=== PATIENT | female | born 1940 | race Caucasian/White ===

== ENCOUNTER 2019-02-23 10:10 | Inpatient (IN) ==
--- NOTE | 2019-02-06 20:52 | PAT Medication Instructions ---
Medication Instructions Date of Service February 06, 2019 Home Medications Antidiarrheal 1 dose PO UD PRN alprazolam [Xanax] 0.25 mg PO UD PRN ascorbic acid (vitamin C) [Vitamin C] 500 mg PO DAILY calcium carbonate-vitamin D3 [Calcium 600 + D(3)] 1 cap PO DAILY cholecalciferol (vitamin D3) [Vitamin D3] 15,000 unit PO DAILY cyanocobalamin (vitamin B-12) [Vitamin B-12] 5,000 mcg PO DAILY ibuprofen 200 mg PO UD PRN lactobacillus combination no.4 [Probiotic] 3,000 mmu cells PO DAILY multivitamin 1 cap PO DAILY omeprazole 20 mg PO QAM sertraline 200 mg PO QAM trazodone 50 mg PO HS ASK your surgeon for instructions ibuprofen 200 mg PO UD PRN DO NOT take the morning of surgery Antidiarrheal 1 dose PO UD PRN ascorbic acid (vitamin C) [Vitamin C] 500 mg PO DAILY calcium carbonate-vitamin D3 [Calcium 600 + D(3)] 1 cap PO DAILY cholecalciferol (vitamin D3) [Vitamin D3] 15,000 unit PO DAILY cyanocobalamin (vitamin B-12) [Vitamin B-12] 5,000 mcg PO DAILY lactobacillus combination no.4 [Probiotic] 3,000 mmu cells PO DAILY multivitamin 1 cap PO DAILY Take morning of surgery With a small sip of water, OTHERWISE NOTHING TO EAT OR DRINK AFTER MIDNIGHT: alprazolam [Xanax] 0.25 mg PO UD PRN (if needed) omeprazole 20 mg PO QAM sertraline 200 mg PO QAM Take evening before surgery alprazolam [Xanax] 0.25 mg PO UD PRN (if needed) trazodone 50 mg PO HS Other Notes If you have any questions please call us at [phone] or [phone] or [phone] or [phone]
--- NOTE | 2019-02-07 10:04 | History & Physical Report ---
Date of Service February 07, 2019 date of surgery: 02-23-19 Assessment & Plan (1) Tricompartment osteoarthritis of right knee: Risks and benefits of procedure discussed in detail today, patient would like to proceed with a Right total knee replacement at [facility] as scheduled. will obtain medical clearance from Dr Qureshi prior to surgery as well as obtain PATs at [facility]. Will place on ASA 81mg po bid x 1 month post op, f/u 2 weeks post op for routine post-operative care and x-ray, sooner if having any problems. will make arrangements for HHPT at the time of discharge. At this point in time, has failed conservative measures and would like to proceed with surgical intervention. History of Present Illness Chief Complaint: right knee pain Primary Care Provider: NO PCP Ms Young is a 78 year old female who is here for a follow up of right knee pain, presents for pre-op evaluation prior to a right total knee replacement at [facility] on 02-23-19. she complains of pain and decreased range of motion in her right knee. She states that the symptoms have been chronic and no known injury. Prior NSAIDs include ibuprofen and Aleve. She has been treated with a corticosteroid injection in the past as well as previous visco supplementation. 05-26-16 Dr. Chatterjee performed a Right knee arthroscopy, and previously in 2002 Dr. Guzman performed Left TKA. at this point, her pain is affecting her daily activities and would like to proceed with a right total knee replacement. Allergies Allergy/AdvReac Type Severity Reaction Status Date / Time acetaminophen [From Vicodin] Allergy Severe SEVERE Verified 02/01/19 12:10 NAUSEA , LOST 23 POUNDS FROM hydrocodone [From Vicodin] Allergy Severe SEVERE Verified 02/01/19 12:10 NAUSEA , LOST 23 POUNDS FROM cefuroxime [From Ceftin] Allergy Unknown REACTION Verified 02/01/19 12:10 WAS LONG AGO, UNSURE epinephrine Allergy Unknown BLOOD Verified 02/01/19 12:20 PRESSURE SHOT UP, FACE TURNED RED, DIZZINESS morphine Allergy Unknown BLOOD Verified 02/01/19 12:20 PRESSURE SHOT UP, FACE TURNED RED AND DIZZINESS Sulfa (Sulfonamide Allergy Unknown "JAW ON Verified 02/01/19 12:10 Antibiotics) ONE SIDE WENT UP, CROOKED" amoxicillin [From Augmentin] AdvReac Unknown SICK TO Verified 02/01/19 12:10 STOMACH ciprofloxacin [From Cipro] AdvReac Unknown SICK TO Verified 02/01/19 12:10 STOMACH clavulanic acid AdvReac Unknown SICK TO Verified 02/01/19 12:10 [From Augmentin] STOMACH Home Medications Home Medications Medication Instructions Recorded Confirmed Type Antidiarrheal 1 dose PO UD PRN 02/01/19 02/01/19 History alprazolam [Xanax] 0.25 mg PO UD PRN 02/01/19 02/01/19 History ascorbic acid (vitamin C) [Vitamin 500 mg PO DAILY 02/01/19 02/01/19 History C] calcium carbonate-vitamin D3 1 cap PO DAILY 02/01/19 02/01/19 History [Calcium 600 + D(3)] cholecalciferol (vitamin D3) 15,000 unit PO DAILY 02/01/19 02/01/19 History [Vitamin D3] cyanocobalamin (vitamin B-12) 5,000 mcg PO DAILY 02/01/19 02/01/19 History [Vitamin B-12] ibuprofen 200 mg PO UD PRN 02/01/19 02/01/19 History lactobacillus combination no.4 3,000 mmu cells PO DAILY 02/01/19 02/01/19 History [Probiotic] multivitamin 1 cap PO DAILY 02/01/19 02/01/19 History omeprazole 20 mg PO QAM 02/01/19 02/01/19 History sertraline 200 mg PO QAM 02/01/19 02/01/19 History trazodone 50 mg PO HS 02/01/19 02/01/19 History Past Med/Surg History Medical History Anxiety Arthritis IN BACK AND NECK, LIMITED ROM IN NECK Bleeds easily PT REPORTS IF SHE GETS A CUT SHE "BLEEDS A LOT" /DENIES USE OF BLOOD THINNER Diverticulitis Frequent diarrhea Gastrointestinal problem NOT SURE NAME OF DX/KVNG GILMAN History of anemia HEMATOLOGY VISITS DIRECTED/SERENA BELTRE History of blood transfusion & IRON TRANSFUSION IBS (irritable bowel syndrome) Nausea and vomiting after administration of anesthetic agent HAD GENERAL ANESTHESIA FOR LEFT KNEE REPLACEMENT - POST OP PAIN AND N/V - PT SPOKE WITH DR ORTEGA AND PLANS ARE FOR SPINAL ANESTHESIA FOR UPCOMING R TKA OCD (obsessive compulsive disorder) Osteoarthritis Surgical History History of appendectomy History of colonoscopy History of tonsillectomy History of total left knee replacement Family History Other Family history of Lizama's esophagus Social History Preferred Language: Azeri Communication Ability: Effective 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 Beliefs That Will Affect Care: Moravian Moravian Beliefs: SY[place]GOGUE Current Living Situation: Alone Other Information That Helps Us Care for You: No Feels Safe at Home: Yes Smoking Status: Never smoker Do You Dip or Chew Tobacco: No ; Hx Alcohol Use: Yes Alcohol type: wine and hard liquor Review of Systems Review of Systems: All systems reviewed & are unremarkable except as noted in HPI & below Constitutional: no fever, no chills and no sweats Respiratory: no cough and no dyspnea Cardiovascular: no chest pain, no dyspnea and no orthopnea Gastrointestinal: no abdominal pain, no nausea and no vomiting Musculoskeletal: as per Subjective / HPI Physical Exam Physical Exam: Ht: 5ft Wt: 67.13kg BP: 132/72 Pulse: 62 Constitutional: WD/WN, vitals as above no acute distress Respiratory: normal respiratory effort, lungs clear to auscultation no respiratory distress, no labored breathing and does not use accessory muscles Cardiovascular: RRR, no murmur, no edema Gastrointestinal (Abdomen): normal bowel sounds, soft, nontender, no hepatosplenomegaly Musculoskeletal: Right Knee Physical Exam: ambulates with a limp, there is no erythema, warmth, ecchymosis or atrophy noted, +1 effusion, greatest tenderness over the medial joint line and anterior knee joint. negative patellar apprehe nsion , mild crepitation with motion, anita's negative, posterior drawer negative. positive mcmurrays medially, negative anterior drawer, knee stable with valgus/varus stress. no extensor lag. pain with active range of motion, AROM 0/3/110, Passive ROM 0/3/115. No pain with active/passive ROM of ankle. Lower Extremity Strength normal. Lower Extremity Neuro-vascular is normal Results & Data Diagnostic Findings right knee xray from 12/17/18 showing complete loss joint space medial compartment with overall varus alignment, there is also narrowing of the lateral compartment and patellofemoral joint. there is osteophyte formation, subchondral sclerosis noted, no loose bodies, no acute bony pathology. overall impression tricompartmental degenerative changes to the right knee.
--- NOTE | 2019-02-07 13:31 | Anesthesiology Consultation ---
Date of Service February 07, 2019 Assessment & Plan (1) Encounter for pre-operative examination: - Patient concerned RE: debora almonte: Advised patient to discuss further AM DOS* Chart Review Chart Review: Pending: Refer to Additional Notes / Consult section (pending preop testing (labs, EKG, CXR)) and Patient seen in Pre Admission Testing Teaching & Discussion Pre-Anesthesia Teaching/Discussion Notes: Instructed NPO after midnight before surgery,except medications with 15 cc of water. Medication instructions provided according to the PAT guidelines. History Surgery Operation Date: 02/23/19 08:20 Proposed Procedures p Right Total Knee Arthroplasty - Jorje Holden DO Height/Weight Height: 5 ft Weight: 71 kg Allergies Allergy/AdvReac Type Severity Reaction Status Date / Time cefuroxime [From Ceftin] Allergy Unknown remote Verified 02/07/19 13:29 reaction (unsure of reaction) epinephrine Allergy Unknown elevated Verified 02/07/19 13:29 BP, facial flushing, dizziness morphine Allergy Unknown elevated Verified 02/07/19 13:29 BP, facial flushing, dizziness acetaminophen [From Vicodin] AdvReac Severe severe Verified 02/07/19 13:29 nausea (23 pound weight loss) hydrocodone [From Vicodin] AdvReac Severe severe Verified 02/07/19 13:29 nausea (23 pound weight loss) amoxicillin [From Augmentin] AdvReac Unknown dyspepsia Verified 02/07/19 13:29 ciprofloxacin [From Cipro] AdvReac Unknown dyspepsia Verified 02/07/19 13:29 clavulanic acid AdvReac Unknown dyspepsia Verified 02/07/19 13:29 [From Augmentin] Sulfa (Sulfonamide AdvReac Unknown jaw issues Verified 02/07/19 13:29 Antibiotics) (crooked, one side elevated) Medications Home Medications Medication Instructions Recorded Confirmed Last Taken Antidiarrheal 1 dose PO UD PRN 02/01/19 02/01/19 Unknown alprazolam [Xanax] 0.25 mg PO UD PRN 02/01/19 02/01/19 Unknown ascorbic acid (vitamin C) [Vitamin 500 mg PO DAILY 02/01/19 02/01/19 Unknown C] calcium carbonate-vitamin D3 1 cap PO DAILY 02/01/19 02/01/19 Unknown [Calcium 600 + D(3)] cholecalciferol (vitamin D3) 15,000 unit PO DAILY 02/01/19 02/01/19 Unknown [Vitamin D3] cyanocobalamin (vitamin B-12) 5,000 mcg PO DAILY 02/01/19 02/01/19 Unknown [Vitamin B-12] ibuprofen 200 mg PO UD PRN 02/01/19 02/01/19 Unknown lactobacillus combination no.4 3,000 mmu cells PO DAILY 02/01/19 02/01/19 Unknown [Probiotic] multivitamin 1 cap PO DAILY 02/01/19 02/01/19 Unknown omeprazole 20 mg PO QAM 02/01/19 02/01/19 02/01/19 sertraline 200 mg PO QAM 02/01/19 02/01/19 02/01/19 trazodone 50 mg PO HS 02/01/19 02/01/19 Unknown Past Medical History Medical History Acid reflux occasional breakthrough symptoms Anxiety Diverticulosis Dysphagia chronic, unchanged to solids (several years) History of anemia hematology monitoring (Dr. Retana; [place]) History of blood transfusion hx blood transfusion (2002) + iron infusion (1+ years ago) IBS (irritable bowel syndrome) + frequent diarrhea OCD (obsessive compulsive disorder) Osteoarthritis Exercise / Class Metabolic Activity III < 4 Walking/Shop/Light housework Past Family History Family History Other Family history of Lizama's esophagus Past Surgical History Surgical History History of appendectomy History of arthroscopy of right knee History of colonoscopy History of tonsillectomy History of total left knee replacement Past Anesthesia History No Family Hx of Anesthesia Complications and Other "Slow to wake" x1 episode with right knee arthroscopy. No known hx reintubation. No similar issues with other surgeries. History of PONV History of PONV and Hx of Motion Sickness (occasional) Social History Smoking Status: Never smoker Do You Dip or Chew Tobacco: No Hx Alcohol Use: Yes Alcohol type: wine and hard liquor alcohol intake frequency: a few times a month Hx Substance Use: No substance use type: does not use Review of Systems Occasional breakthrough reflux. Patient denies chest pain, shortness of breath, cough, wheezing, palpitations. Physical Exam Vital Signs VITALS BP 151/66 (Patient advised to followup with PCP regarding elevated BP) P 53 TEMP 98.4 SP02 95%RA RESP 16 PHYSICAL Full neck and c-spine range of motion. Full TMJ range of motion. TMD 3.5 finger breaths Mallampati Score 1 Dentition: upper full denture Lungs: clear throughout to auscultation Cardiac: regular rate and rhythm, no murmurs noted Spine: normal Carotid arteries: negative bruit Extremities: no edema Testing Laboratory Results 02/07/19 13:57 02/07/19 13:57 PT 10.7 Seconds (9.0-12.0) 02/07/19 13:57 INR 1.0 (0.9-1.1) 02/07/19 13:57 APTT 26.8 Seconds (21.0-31.0) 02/07/19 13:57 Hemoglobin A1c 5.5 % (4.5-5.6) 02/07/19 13:57 Urine Color Yellow 02/07/19 13:57 Urine Appearance Clear (Clear) 02/07/19 13:57 Urine pH 7.0 (4.5-7.5) 02/07/19 13:57 Ur Specific Remer 1.015 (1.000-1.030) 02/07/19 13:57 Urine Protein Negative (Negative) 02/07/19 13:57 Urine Glucose (UA) Negative (Negative) 02/07/19 13:57 Urine Ketones Negative (Negative) 02/07/19 13:57 Urine Nitrite Negative (Negative) 02/07/19 13:57 Ur Leukocyte Esterase 1+ (Negative) H 02/07/19 13:57 Urine WBC (Auto) 10-30 /hpf (0-5) H 02/07/19 13:57 Urine RBC (Auto) 0-4 /hpf (0-4) 02/07/19 13:57 U Hyaline Cast (Auto) 0 /lpf (0-5) 02/07/19 13:57 U Epithel Cells (Auto) 10-20 /lpf (0-5) H 02/07/19 13:57 Urine Bacteria (Auto) Negative (Negative) 02/07/19 13:57 Blood Type B Positive 02/07/19 13:57 Antibody Screen NEGATIVE 02/07/19 13:57
--- NOTE | 2019-02-07 14:33 | XRay Report ---
XR chest Pre-admission PA/Lat CLINICAL HISTORY: PAT preoperative evaluation COMPARISON STUDY: No previous studies for comparison. FINDINGS: Mild cardiomegaly. Hiatal hernia. Type M smooth. Lungs are clear. Minimal atelectasis left base. IMPRESSION: No acute process. Chronic change. Hiatal hernia. The above report was generated using voice recognition software. It may contain grammatical, syntax or spelling errors. Electronically signed by: Joaquín Vazquez M.D. 02/07/2019 2:32 PM
[2019-02-07 15:25] LABS: Eosinophils # (auto) 0.01 K/uL (0-0.5); Eosinophils % (auto) 0.3 %; Hematocrit (blood only) 33.6 % (37-47); Hemoglobin 11.2 g/dL (12.0-16.0); Lymphocytes # (auto) 1.43 K/uL (1.2-3.4); Lymphocytes % (auto) 37.2 %; Mean Corpuscular Hemoglobin 31.5 pg (25-34); Mean Corpuscular Hgb Conc 33.3 g/dL (32-36); Mean Corpuscular Volume 94.4 fL (80-100); Mean Platelet Volume 10.5 fL (7.4-10.4); Monocytes # (auto) 0.41 K/uL (0.11-0.59); Monocytes % (auto) 10.7 %; Neutrophils # (auto) 1.99 K/uL (1.4-6.5); Neutrophils % (auto) 51.8 %; Platelet Count 130 K/uL (130-400); RDW Standard Deviation 44.4 fL (36.4-46.3); Red Blood Count 3.56 M/uL (4.2-5.4); White Blood Count 3.84 K/uL (4.8-10.8)
[2019-02-07 15:28] LABS: Albumin Level 3.6 gm/dl (3.4-5.0); BUN Creatinine Ratio 21.3 (10-20); Calcium 8.5 mg/dl (8.5-10.1); Creatinine Clr Calc Pharmacy 49.3 ml/min; Est GFR (African American) 77.7; Estimated Average Glucose 111 mg/dl; Hemoglobin A1C 5.5 % (4.5-5.6); Potassium 4.5 mmol/L (3.5-5.1)
[2019-02-07 15:29] LABS: Partial Thromboplastin Time 26.8 Seconds (21.0-31.0); Prothrombin Time 10.7 Seconds (9.0-12.0)
[2019-02-07 15:31] LABS: Appearance Urine Clear (Clear); Bacteria Urine Automated Negative (Negative); Bilirubin Urine Negative (Negative); Blood Urine Negative (Negative); Cast Urine Automated 0 /lpf (0-5); Color Urine Yellow; Glucose Urine UA Negative (Negative); Ketones Urine Negative (Negative); Leukocyte Esterase Urine 1+ (Negative); Nitrite Urine Negative (Negative); Protein Urine Negative (Negative); RBC Urine Automated 0-4 /hpf (0-4); Specific Gravity Urine 1.015 (1.000-1.030); Urobilinogen Urine Negative (Negative)
[2019-02-07 16:58] LABS: Smudge Cells Present
[~2019-02-23 10:10] MED LIST: ACETAMINOPHEN 500 MG TAB PO SCH; BUPIVACAINE 0.5 % 5 MG/1 ML PF 10ML VIAL ONE; CLINDAMYCIN 600 MG/54 ML BAG IV SCH; CeleBREX 200 MG CAP PO SCH; EPINEPHrine INJ 1 MG/ML AMP ONE; FAMOTIDINE 20 MG TAB PO SCH; GABAPENTIN 300 MG CAP PO SCH; LR 500ML BOLUS, THEN 15ML/HR IV SCH; ROPIVACAINE 0.5% 5 MG/ML 30 ML VIAL ONE; TRANEXAMIC ACID 1,000 MG **IV Intra-op IV SCH; TRANEXAMIC ACID 1,000 MG **IV Pre-op IV SCH; dexAMETHasone 4 MG TAB PO SCH
--- NOTE | 2019-02-23 11:09 | History & Physical Bridge Note ---
Date of Service February 23, 2019 History & Physical Bridge Note I have examined the patient, reviewed the History & Physical and in the interval since the performance of the History & Physical I have noted the following changes of clinical significance: no changes noted
[2019-02-23] MEDS ORDERED: PROPOFOL IV EMULSION 10 MG/ML 20 ML VIAL IV ONE (11:11)
[2019-02-23] MEDS ORDERED: LIDOCAINE HCL 2% 2 ML VIAL/AMP(20MG/ML) INFIL ONE (11:11)
[2019-02-23] MEDS ORDERED: MIDAZOLAM HCL 1 MG/ML 2ML VIAL ONE (11:11)
[2019-02-23] MEDS ORDERED: BACITRACIN INJ 50,000 UNIT VIAL ONE (11:43)
[2019-02-23] MEDS ORDERED: CLINDAMYCIN 600 MG/54 ML D5W IV ONE (11:57)
[2019-02-23] MEDS ORDERED: ROPIVACAINE 0.5% HCL/PF 150 MG, BUPIVACAINE 0.5% MPF 30 ML, Ketorolac (*for OR use only... INFIL SCH (12:30)
[2019-02-23] MEDS ORDERED: ePHEDrine sulfate 50 MG/ML AMP IV PRN (12:43)
[2019-02-23] MEDS ORDERED: ATROPINE SULFATE 0.1 MG/ML 10ML SYR IV PRN (12:43)
--- NOTE | 2019-02-23 13:42 | Operative Report ---
Post Operative Report Pre & Post Diagnosis Operation Date: 02/23/19 12:40 Pre-Op Diagnosis: Tricompartment osteoarthritis of right knee Post-Op Diagnosis: Tricompartment osteoarthritis of right knee Procedure Operation Date: 02/23/19 12:40 Actual Procedures p Right Total Knee Arthroplasty, cemented, [employer](Right) utilizing journey to non-block total knee arthroplasty size 4 femur to tibia 9 polyethylene 29 oval patella- Jorje Holden DO Surgeon Jorje Holden DO [employer] Joaquín ROGERS Estimated Blood Loss 5 Findings Consistent with Post-Op Diagnosis Severe end-stage tricompartmental degenerative joint disease right knee no response to conservative management subchondral cystic changes noted marginal osteophytes eburnated [id number] medial compartment lateral compartment patellofemoral compartment moderate to large effusion Specimens Bone cartilage Drains Medium bore Hemovac Complications none Disposition Accompanied Patient To Recovery: No Disposition: Recovery Room Indications Patient presents with ongoing planes of pain trouble to the right knee no response to conservative management and physical therapy anti-inflammatories relative rest activity modification corticosteroid injection Visco supplementation patient is failed attempted conservative manage the above intraoperative findings noted times surgery. Description of Procedure Patient was properly identifiedAfter proper prepping and draping of the Right lower extremity anterior midline incision was made over the region of the e xtensor extensor mechanism after meticulous hemostasis was obtained and maintained in subcutaneous tissues a medial parapatellar incision was made The patella was subluxed lateralward the medial lateral gutter were cleaned from any hypertrophic synovitis and scar tissue of the distal femoral block was placed and the distal femoral osteotomy cut was made subsequently the chamfers anterior and posterior osteotomy cuts were made utilizing the 4-in-1 block the tibia was subsequently subluxed anteriorward medial and ateral meniscal remnants were excised in their entirety remnants of the anterior and posterior cruciate ligaments were excised in their entirety excellent exposure of the proximal tibia was obtained the tibial osteotomy guide was placed on the proximal tibial osteotomy cut was made once again the knee was irrigated with copious amounts of sterile saline solution the patella was subsequently everted lateralward thickened scar tissue around the patella was removed the patella was subsequently cut utilizing a freehand technique and was drilled prepared for final preparation and placement of patella socially flexion-extension gaps were checked and the equal and symmetric trials were placed to the appropriate femoral and tibial trials with poly-spacer being placed for equal flexion and extension gaps and full range of motion including extension to 0 and flexion to 140 the trial components after having been taken to recovery range of motion was subsequently removed meticulous hemostasis was obtained and maintained subsequently a knee block injection of joint cocktail including ropivacaine 0.5% 150 mg. Bupivacaine 0.5% epinephrine 1-200,030 mL's toradol 30 mg dexamethasone 4 mg ketamine 10 mg clonidine 100 micrograms normal saline solution 30 mg was infiltrated into the soft tissues of the posterior knee medial lateral gutters and periosteal synovium special attention was paid to protect neurovascular structures at all times subsequently trial components having been removed the knee was irrigated with sterile saline solution. debris was removed the proximal tibia was subsequently prepared and was made ready for the placement of the tibial component tibial component was also cemented and tamped into position the femoral component was subsequently placed and cemented in the position the patellar component was subsequently cemented in position because hemostasis once again obtained and maintained wound having been thoroughly irrigated with debridement and debridement lavage was performed as well as a medial parapatellar incision closed with #1 Vicryl in interrupted fashion subcutaneous was closed with #2 Vicryl skin was closed with skin clips. PA-C was necessary for prepping and drapping as well as wound closure of deep fascia Sub cutaneous tissue and skin and was necessary for the case. A sterile compressive dressing was placed patient was taken to recovery in stable condition of report dictated by Navin I attest to the content of the Intraoperative Record and any orders documented therein. Any exceptions are noted below. I attest to the content of the Intraoperative Record and any orders documented therein. Any exceptions are noted below.
--- NOTE | 2019-02-23 15:01 | XRay Report ---
RIGHT KNEE 2 VIEWS History: Right total knee arthroplasty. Degenerative arthritis. Postop. FINDINGS: The patient is status post a right total knee arthroplasty. The hardware is intact. No frac ture or dislocation. Surgical drains are in place. IMPRESSION: Right total knee arthroplasty. No evidence for hardware complication. Electronically signed by: Ulysses Deleon M.D. 02/23/2019 2:59 PM
--- NOTE | 2019-02-23 15:29 | Anesthesiology Progress Note ---
Date of Service February 23, 2019 Anesthesia Post Procedure Vital Signs Vital Signs: Temp Pulse Pulse Pulse Resp BP BP 02/23/19 15:21 56 L 13 127/72 02/23/19 15:20 57 L 13 02/23/19 15:16 60 12 128/83 02/23/19 15:15 53 L 23 02/23/19 15:12 36.4 C L 02/23/19 15:11 56 L 13 02/23/19 15:10 76 15 123/72 02/23/19 15:06 64 18 101/67 02/23/19 15:05 54 L 14 02/23/19 15:01 58 L 12 02/23/19 15:00 78 13 122/83 02/23/19 14:56 44 L 13 107/85 02/23/19 14:55 79 16 02/23/19 14:51 68 16 02/23/19 14:50 60 16 130/77 02/23/19 14:46 76 15 02/23/19 14:45 75 15 125/77 02/23/19 14:41 77 17 02/23/19 14:40 78 14 106/70 02/23/19 14:36 75 17 02/23/19 14:35 36.6 C 80 80 19 115/71 115/71 02/23/19 14:31 70 14 02/23/19 14:30 79 15 112/66 02/23/19 14:27 78 16 02/23/19 14:26 36.6 C 81 79 25 H 112/53 L 112/53 L 02/23/19 10:57 36.5 C 48 L 20 BP Pulse Ox 02/23/19 15:21 95 02/23/19 15:20 96 02/23/19 15:16 98 02/23/19 15:15 93 02/23/19 15:12 94 02/23/19 15:11 97 02/23/19 15:10 97 02/23/19 15:06 96 02/23/19 15:05 96 02/23/19 15:01 97 02/23/19 15:00 97 02/23/19 14:56 96 02/23/19 14:55 94 02/23/19 14:51 94 02/23/19 14:50 96 02/23/19 14:46 94 02/23/19 14:45 96 02/23/19 14:41 96 02/23/19 14:40 02/23/19 14:36 97 02/23/19 14:35 100 02/23/19 14:31 99 02/23/19 14:30 99 02/23/19 14:27 98 02/23/19 14:26 99 02/23/19 10:57 137/79 99 Pain Intensity Right Knee: Pain Intensity: 0 Transfer of Care Handoff Completed per policy Notes Mental Status: alert / awake / arousable Patient Amnestic to Procedure: Yes Nausea / Vomiting: adequately controlled Pain: adequately controlled Airway Patency, RR, SpO2: stable & adequate BP & HR: stable & adequate Hydration State: stable & adequate Neuraxial Anesthesia: was administered and sensory block is resolving Anesthetic Complications: no major complications apparent
[2019-02-23] MEDS ORDERED: MAGNESIUM HYDROXIDE SUSP 30 ML UDC PO PRN (15:46)
[2019-02-23] MEDS ORDERED: bisacodyL 10 MG SUPP PR PRN (15:46)
[2019-02-23] MEDS ORDERED: ALPRAZolam 0.25 MG TABLET PO PRN (15:46)
[2019-02-23] MEDS ORDERED: NALOXONE HCL 0.4 MG/1 ML VIAL/CARP IV PRN (15:46)
[2019-02-23] MEDS ORDERED: METOCLOPRAMIDE HCL INJ 5 MG/ML 2 ML VIAL IV PRN (15:46)
[2019-02-23] MEDS ORDERED: SODIUM CHLORIDE 0.9% 1000ML 1,000 ML IV SCH (16:00)
[2019-02-23] MEDS: KETOROLAC TROMETHAMINE 15 MG/ML VIAL IV SCH ×2 (18:06→23:18)
[2019-02-23] MEDS: TRAZODONE HCL 50 MG TAB PO SCH (21:24)
[2019-02-23] MEDS: SENNA 8.6 MG TAB PO SCH (21:24)
[2019-02-23] MEDS: CLINDAMYCIN 600 MG in DEXTROSE 5% 50 ML IV SCH (21:24)
[2019-02-23] MEDS: ASPIRIN 81 MG ECTAB PO SCH (21:24)
[2019-02-23] MEDS: DOCUSATE SODIUM 100 MG CAP PO SCH (21:24)
[2019-02-24] MEDS: TRAMADOL HCL 50 MG TABLET PO PRN ×4 (04:12→19:54)
[2019-02-24] MEDS: CLINDAMYCIN 600 MG in DEXTROSE 5% 50 ML IV SCH (04:58)
[2019-02-24] MEDS: KETOROLAC TROMETHAMINE 15 MG/ML VIAL IV SCH ×2 (04:58→11:33)
[2019-02-24 05:46] LABS: Hematocrit (blood only) 29.5 % (37-47); Hemoglobin 10.1 g/dL (12.0-16.0); Mean Corpuscular Hemoglobin 31.7 pg (25-34); Mean Corpuscular Hgb Conc 34.2 g/dL (32-36); Mean Corpuscular Volume 92.5 fL (80-100); Mean Platelet Volume 10.3 fL (7.4-10.4); Platelet Count 116 K/uL (130-400); RDW Coefficient of Variation 12.7 % (11.5-14.5); RDW Standard Deviation 43.2 fL (36.4-46.3); Red Blood Count 3.19 M/uL (4.2-5.4); White Blood Count 8.88 K/uL (4.8-10.8)
[2019-02-24 06:15] LABS: BUN Creatinine Ratio 26.9 (10-20); Calcium 7.9 mg/dl (8.5-10.1); Creatinine Clr Calc Pharmacy 50.7 ml/min; Est GFR (African American) 81.2; Est GFR (Non-African American) 70.1; Potassium 4.1 mmol/L (3.5-5.1)
[2019-02-24] MEDS: CHOLECALCIFEROL 1,000 UNITS TAB PO SCH (07:56)
[2019-02-24] MEDS: CALCIUM 600MG + VIT D 400 IU TAB PO SCH (07:56)
[2019-02-24] MEDS: SERTRALINE HCL 100 MG TABLET PO SCH (07:58)
[2019-02-24] MEDS: CYANOCOBALAMIN 500 MCG TABLET (VITAMIN B-12) PO SCH (08:00)
[2019-02-24] MEDS: MULTIVITAMIN TAB PO SCH (08:00)
[2019-02-24] MEDS: ASPIRIN 81 MG ECTAB PO SCH ×2 (08:00→21:20)
[2019-02-24] MEDS: LACTOBACILLUS ACIDOPHILUS (FLORANEX) TAB PO SCH (08:00)
[2019-02-24] MEDS: DOCUSATE SODIUM 100 MG CAP PO SCH ×2 (08:00→21:18)
[2019-02-24] MEDS: ASCORBIC ACID 500 MG TAB PO SCH (08:01)
[2019-02-24] MEDS: MEPERIDINE HCL 25 MG/ML CARP IV PRN ×2 (08:02→21:26)
--- NOTE | 2019-02-24 08:27 | Orthopedic Progress Note ---
Date of Service February 24, 2019 Subjective POD 1 s/p Right TKA Patient is currently sitting up in bed awake and alert. She is complaining of pain in the right knee. Nursing staff is in with her now and attending to her needs. She is due for her p.o. pain meds in a few minutes. We discussed pain medications with her and multiple allergies which cause nausea. We discussed that if the tramadol does not work for her that we may need to try oxycodone which she has never had in the past, or possibly Nucynta versus Dilaudid p.o. she states that she would like to see how the other medications are going to work before trying anything else. She denies any shortness of breath, chest pain, lightheadedness. Physical Exam Physical Exam: Dressings are clean, dry, and intact. Neurovascular is intact. Toes are mobile. 50 mL's from the Hemovac this morning. Results & Data Vital Signs (Past 12 Hours) Vital Signs Temp Pulse Resp BP Pulse Ox 02/24/19 07:25 36.6 C 51 L 16 135/81 99 02/24/19 03:12 36.9 C 56 L 16 128/73 99 02/23/19 23:00 36.6 C 60 16 136/76 94 Laboratory Results Laboratory Results WBC 8.88 K/uL (4.8-10.8) 02/24/19 05:02 RBC 3.19 M/uL (4.2-5.4) L 02/24/19 05:02 Hgb 10.1 g/dL (12.0-16.0) L 02/24/19 05:02 Hct 29.5 % (37-47) L 02/24/19 05:02 MCV 92.5 fL (80-100) 02/24/19 05:02 MCH 31.7 pg (25-34) 02/24/19 05:02 MCHC 34.2 g/dL (32-36) 02/24/19 05:02 RDW Std Deviation 43.2 fL (36.4-46.3) 02/24/19 05:02 RDW Coeff of Roberta 12.7 % (11.5-14.5) 02/24/19 05:02 Plt Count 116 K/uL (130-400) L 02/24/19 05:02 MPV 10.3 fL (7.4-10.4) 02/24/19 05:02 Immature Gran % (Auto) 0.0 % 02/07/19 13:57 Neut % (Auto) 51.8 % 02/07/19 13:57 Lymph % (Auto) 37.2 % 02/07/19 13:57 [place] % (Auto) 10.7 % 02/07/19 13:57 Eos % (Auto) 0.3 % 02/07/19 13:57 Baso % (Auto) 0.0 % 02/07/19 13:57 Immature Gran # (Auto) 0.00 K/uL (0.00-0.02) 02/07/19 13:57 Neut # (Auto) 1.99 K/uL (1.4-6.5) 02/07/19 13:57 Lymph # (Auto) 1.43 K/uL (1.2-3.4) 02/07/19 13:57 [place] # (Auto) 0.41 K/uL (0.11-0.59) 02/07/19 13:57 Eos # (Auto) 0.01 K/uL (0-0.5) 02/07/19 13:57 Baso # (Auto) 0.00 K/uL (0-0.2) 02/07/19 13:57 Smudge Cells Present 02/07/19 13:57 Blood Smear Review 02/07/19 13:57 PT 10.7 Seconds (9.0-12.0) 02/07/19 13:57 INR 1.0 (0.9-1.1) 02/07/19 13:57 APTT 26.8 Seconds (21.0-31.0) 02/07/19 13:57 PTT Ratio 1.0 02/07/19 13:57 Sodium 138 mmol/L (136-145) 02/24/19 05:02 Potassium 4.1 mmol/L (3.5-5.1) 02/24/19 05:02 Chloride 105 mmol/L (98-107) 02/24/19 05:02 Carbon Dioxide 26 mmol/L (21-32) 02/24/19 05:02 Anion Gap 7.0 (3-11) 02/24/19 05:02 BUN 22 mg/dl (7-18) H 02/24/19 05:02 Creatinine 0.81 mg/dl (0.6-1.2) 02/24/19 05:02 Est Cr Clr Drug Dosing 50.7 ml/min 02/24/19 05:02 Est GFR ( Amer) 81.2 02/24/19 05:02 Est GFR (Non-Af Amer) 70.1 02/24/19 05:02 BUN/Creatinine Ratio 26.9 (10-20) H 02/24/19 05:02 Glucose 119 mg/dl (70-99) H 02/24/19 05:02 Estimat Average Glucose 111 mg/dl 02/07/19 13:57 Hemoglobin A1c 5.5 % (4.5-5.6) 02/07/19 13:57 Calcium 7.9 mg/dl (8.5-10.1) L 02/24/19 05:02 Albumin 3.6 gm/dl (3.4-5.0) 02/07/19 13:57 Urine Color Yellow 02/07/19 13:57 Urine Appearance Clear (Clear) 02/07/19 13:57 Urine pH 7.0 (4.5-7.5) 02/07/19 13:57 Ur Specific [place] 1.015 (1.000-1.030) 02/07/19 13:57 Urine Protein Negative (Negative) 02/07/19 13:57 Urine Glucose (UA) Negative (Negative) 02/07/19 13:57 Urine Ketones Negative (Negative) 02/07/19 13:57 Urine Blood Negative (Negative) 02/07/19 13:57 Urine Nitrite Negative (Negative) 02/07/19 13:57 Urine Bilirubin Negative (Negative) 02/07/19 13:57 Urine Urobilinogen Negative (Negative) 02/07/19 13:57 Ur Leukocyte Esterase 1+ (Negative) H 02/07/19 13:57 Urine WBC (Auto) 10-30 /hpf (0-5) H 02/07/19 13:57 Urine RBC (Auto) 0-4 /hpf (0-4) 02/07/19 13:57 U Hyaline Cast (Auto) 0 /lpf (0-5) 02/07/19 13:57 U Epithel Cells (Auto) 10-20 /lpf (0-5) H 02/07/19 13:57 Urine Bacteria (Auto) Negative (Negative) 02/07/19 13:57 Blood Type B Positive 02/07/19 13:57 Antibody Screen NEGATIVE 02/07/19 13:57
--- NOTE | 2019-02-24 08:41 | Anesthesiology Progress Note ---
Date of Service February 24, 2019 Anesthesia Post Procedure Vital Signs Vital Signs: Temp Pulse Pulse Pulse Resp BP BP 02/24/19 07:25 36.6 C 51 L 16 135/81 02/24/19 03:12 36.9 C 56 L 16 128/73 02/23/19 23:00 36.6 C 60 16 136/76 02/23/19 18:47 36.6 C 60 16 131/74 02/23/19 17:41 36.8 C 66 16 120/58 L 02/23/19 16:31 36.2 C L 64 18 02/23/19 16:05 36.4 C L 53 L 16 100/65 02/23/19 15:35 36.5 C 56 L 18 115/73 02/23/19 15:21 56 L 13 127/72 02/23/19 15:20 57 L 13 02/23/19 15:16 60 12 128/83 02/23/19 15:15 53 L 23 02/23/19 15:12 36.4 C L 02/23/19 15:11 56 L 13 02/23/19 15:10 76 15 123/72 02/23/19 15:06 64 18 101/67 02/23/19 15:05 54 L 14 02/23/19 15:01 58 L 12 02/23/19 15:00 78 13 122/83 02/23/19 14:56 44 L 13 107/85 02/23/19 14:55 79 16 02/23/19 14:51 68 16 02/23/19 14:50 60 16 130/77 02/23/19 14:46 76 15 02/23/19 14:45 75 15 125/77 02/23/19 14:41 77 17 02/23/19 14:40 78 14 106/70 02/23/19 14:36 75 17 02/23/19 14:35 36.6 C 80 80 19 115/71 115/71 02/23/19 14:31 70 14 02/23/19 14:30 79 15 112/66 02/23/19 14:27 78 16 02/23/19 14:26 36.6 C 81 79 25 H 112/53 L 112/53 L 02/23/19 10:57 36.5 C 48 L 20 BP Pulse Ox 10/03/19 07:25 99 02/24/19 03:12 99 02/23/19 23:00 94 02/23/19 18:47 96 02/23/19 17:41 94 02/23/19 16:31 112/73 100 02/23/19 16:05 100 02/23/19 15:35 100 02/23/19 15:21 95 02/23/19 15:20 96 02/23/19 15:16 98 02/23/19 15:15 93 02/23/19 15:12 94 02/23/19 15:11 97 02/23/19 15:10 97 02/23/19 15:06 96 02/23/19 15:05 96 02/23/19 15:01 97 02/23/19 15:00 97 02/23/19 14:56 96 02/23/19 14:55 94 02/23/19 14:51 94 02/23/19 14:50 96 02/23/19 14:46 94 02/23/19 14:45 96 02/23/19 14:41 96 02/23/19 14:40 02/23/19 14:36 97 02/23/19 14:35 100 02/23/19 14:31 99 02/23/19 14:30 99 02/23/19 14:27 98 02/23/19 14:26 99 02/23/19 10:57 137/79 99 Pain Intensity Right Knee: Pain Intensity: 4 Notes Mental Status: alert / awake / arousable and participated in evaluation Patient Amnestic to Procedure: Yes Nausea / Vomiting: adequately controlled Pain: adequately controlled Airway Patency, RR, SpO2: stable & adequate BP & HR: stable & adequate Hydration State: stable & adequate Neuraxial Anesthesia: was administered and sensory block resolved Anesthetic Complications: no major complications apparent and Pt Satisfied with anesthetic care
[2019-02-24] MEDS: CeleBREX 200 MG CAP PO SCH (21:18)
[2019-02-24] MEDS: TRAZODONE HCL 50 MG TAB PO SCH (21:19)
[2019-02-24] MEDS: SENNA 8.6 MG TAB PO SCH (21:20)
[2019-02-24] MEDS: ONDANSETRON INJ 2 MG/ML 2 ML VIAL IV PRN (23:31)
[2019-02-25] MEDS: MEPERIDINE HCL 25 MG/ML CARP IV PRN (03:11)
[2019-02-25] MEDS ORDERED: TAPENTADOL HCL 50 MG TAB PO PRN (07:54)
--- NOTE | 2019-02-25 08:29 | Orthopedic Progress Note ---
Date of Service February 25, 2019 Assessment & Plan (1) Tricompartment osteoarthritis of right knee: Postop day 2 status post right TKA. Pain management issues -we will discontinue her tramadol. Tapentadol 5200 mg p.o. every 4 hours as needed started. Toradol 50 mg IV every 6 hours reordered. Plan to check a BMP as well this morning. Continue PT and OT protocols. Weightbearing as tolerated DVT prophylaxis with aspirin, SCDs and NANETTE hose Pain management as noted above. DC planning-patient is planning on home health services. Depending on pain control, we will see how she responds to the tapentadol and more than likely she may have to stay until tomorrow depending on pain control. Subjective Postop day 2 status post right total knee arthroplasty. Patient is lying in bed this morning. She is awake and alert. She states that she still has poor pain control. She feels that the tramadol is not working. She states that the Demerol helps but makes her go to sleep. She has multiple narcotics that she has allergies listed to which mainly because nausea etc. We discussed that we can change her pain medications to something else at this time. However depending on how she reacts to the medications, she may have to stay an extra day to make sure her pain is controlled before she goes home. Patient understands. Physical Exam Physical Exam: Incision is clean, dry, and intact. She has mild to moderate swelling of the knee with no overt erythema. Calves are soft and nontender. Neurovascular intact. Toes are mobile. Results & Data Vital Signs (Past 12 Hours) Vital Signs Temp Pulse Resp BP Pulse Ox 02/25/19 07:15 37.2 C 102 H 18 100/66 92 02/24/19 22:59 36.9 C 72 16 116/73 93
[2019-02-25] MEDS: KETOROLAC TROMETHAMINE 15 MG/ML VIAL IV SCH ×2 (08:41→14:24)
[2019-02-25] MEDS: CeleBREX 200 MG CAP PO SCH (08:42)
[2019-02-25] MEDS: CHOLECALCIFEROL 1,000 UNITS TAB PO SCH (08:52)
[2019-02-25] MEDS: ASCORBIC ACID 500 MG TAB PO SCH (08:52)
[2019-02-25] MEDS: CYANOCOBALAMIN 500 MCG TABLET (VITAMIN B-12) PO SCH (08:52)
[2019-02-25] MEDS: DOCUSATE SODIUM 100 MG CAP PO SCH ×2 (08:53→20:55)
[2019-02-25] MEDS: ASPIRIN 81 MG ECTAB PO SCH ×2 (08:53→20:55)
[2019-02-25] MEDS: CALCIUM 600MG + VIT D 400 IU TAB PO SCH (08:53)
[2019-02-25] MEDS: SERTRALINE HCL 100 MG TABLET PO SCH (08:53)
[2019-02-25] MEDS: MULTIVITAMIN TAB PO SCH (08:53)
[2019-02-25] MEDS: LACTOBACILLUS ACIDOPHILUS (FLORANEX) TAB PO SCH (08:53)
[2019-02-25 09:20] LABS: BUN Creatinine Ratio 47.8 (10-20); Calcium 7.9 mg/dl (8.5-10.1); Est GFR (African American) 83.7; Est GFR (Non-African American) 72.2; Potassium 3.9 mmol/L (3.5-5.1)
[2019-02-25] MEDS: PANTOprazole 40 MG TAB PO SCH (10:21)
[2019-02-25] MEDS: TAPENTADOL HCL 50 MG TAB PO PRN ×2 (16:00→20:55)
[2019-02-25] MEDS: ONDANSETRON INJ 2 MG/ML 2 ML VIAL IV PRN (16:04)
[2019-02-25] MEDS ORDERED: KETOROLAC TROMETHAMINE 15 MG/ML VIAL IV PRN (20:00)
[2019-02-25] MEDS: SENNA 8.6 MG TAB PO SCH (20:55)
[2019-02-25] MEDS: TRAZODONE HCL 50 MG TAB PO SCH (22:26)
[2019-02-26 06:15] LABS: BUN Creatinine Ratio 26.8 (10-20); Calcium 8.2 mg/dl (8.5-10.1); Creatinine Clr Calc Pharmacy 53.4 ml/min; Est GFR (African American) 86.3; Est GFR (Non-African American) 74.5; Potassium 4.2 mmol/L (3.5-5.1)
[2019-02-26] MEDS: CHOLECALCIFEROL 1,000 UNITS TAB PO SCH (07:48)
[2019-02-26] MEDS: CYANOCOBALAMIN 500 MCG TABLET (VITAMIN B-12) PO SCH (07:49)
[2019-02-26] MEDS: TAPENTADOL HCL 50 MG TAB PO PRN ×2 (07:53→12:48)
[2019-02-26] MEDS: DOCUSATE SODIUM 100 MG CAP PO SCH (07:54)
[2019-02-26] MEDS: MULTIVITAMIN TAB PO SCH (07:54)
[2019-02-26] MEDS: LACTOBACILLUS ACIDOPHILUS (FLORANEX) TAB PO SCH (07:54)
[2019-02-26] MEDS: SERTRALINE HCL 100 MG TABLET PO SCH (07:54)
[2019-02-26] MEDS: ASCORBIC ACID 500 MG TAB PO SCH (07:54)
[2019-02-26] MEDS: PANTOprazole 40 MG TAB PO SCH (07:54)
[2019-02-26] MEDS: CALCIUM 600MG + VIT D 400 IU TAB PO SCH (07:55)
--- NOTE | 2019-02-26 07:55 | Orthopedic Progress Note ---
Date of Service February 26, 2019 Assessment & Plan (1) Status post right knee replacement: 78 yo female stable POD #3 s/p right TKA, improved pain control 1. Med management 2. DVT prophylaxis- ASA, SCDs 3. PT/OT 4. D/C planning- home w/ HH Subjective Pt resting in the chair, pain better controlled today, denies complaints Physical Exam Physical Exam: Incision C/D/I, toes mobile, NVI, calves soft Results & Data Vital Signs (Past 12 Hours) Vital Signs Temp Pulse Pulse Resp BP Pulse Ox 02/26/19 05:44 37.6 C H 87 16 125/70 92 02/25/19 23:30 37.4 C 98 H 18 133/75 93 Laboratory Results 02/26/19 02/25/19 Range/Units 05:15 08:41 Sodium 137 132 L (136-145) mmol/L Potassium 4.2 3.9 (3.5-5.1) mmol/L Chloride 102 100 (98-107) mmol/L Carbon Dioxide 29 27 (21-32) mmol/L Anion Gap 6.0 5.0 (3-11) BUN 21 H 38 H D (7-18) mg/dl Creatinine 0.77 0.79 (0.6-1.2) mg/dl Est Cr Clr Drug Dosing 53.4 52.0 ml/min Est GFR ( Amer) 86.3 83.7 Est GFR (Non-Af Amer) 74.5 72.2 BUN/Creatinine Ratio 26.8 H 47.8 H (10-20) Glucose 107 H 109 H (70-99) mg/dl Calcium 8.2 L 7.9 L (8.5-10.1) mg/dl
[2019-02-26] MEDS: ASPIRIN 81 MG ECTAB PO SCH (08:14)
[2019-02-26] MEDS ORDERED: ONDANSETRON 4 MG TAB PO PRN (12:56)
--- NOTE | 2019-02-26 19:47 | Discharge Summary ---
Date of Service Date of discharge: February 26, 2019 Date of Admission: 02/23/19 Admission HPI Per Admitting Provider Ms Young is a 78 year old female who is here for a follow up of right knee pain, presents for pre-op evaluation prior to a right total knee replacement at [facility] on 02-23-19. she complains of pain and decreased range of motion in her right knee. She states that the symptoms have been chronic and no known injury. Prior NSAIDs include ibuprofen and Aleve. She has been treated with a corticosteroid injection in the past as well as previous visco supplementation. 05-26-16 Dr. Chatterjee performed a Right knee arthroscopy, and previously in 2002 Dr. Guzman performed Left TKA. at this point, her pain is affecting her daily activities and would like to proceed with a right total knee replacement. Principal Diagnosis right knee osteoarthritis Discharge Exam Constitutional WD/WN, vitals as above no acute distress Musculoskeletal right knee: NVDI, calf SNT, negative maria elena sign. DP palpable, able to wiggle toes/ankle movement without difficulty. prineo dressing clean dry and intact. expected post-operative bruising noted. Discharge Data Allergies Allergy/AdvReac Type Severity Reaction Status Date / Time cefuroxime [From Ceftin] Allergy Unknown remote Verified 02/23/19 10:40 reaction (unsure of reaction) epinephrine Allergy Unknown elevated Verified 02/23/19 10:40 BP, facial flushing, dizziness morphine Allergy Unknown elevated Verified 02/23/19 10:40 BP, facial flushing, dizziness acetaminophen [From Vicodin] AdvReac Severe severe Verified 02/23/19 10:40 nausea (23 pound weight loss) hydrocodone [From Vicodin] AdvReac Severe severe Verified 02/23/19 10:40 nausea (23 pound weight loss) amoxicillin [From Augmentin] AdvReac Unknown dyspepsia Verified 02/23/19 10:40 ciprofloxacin [From Cipro] AdvReac Unknown dyspepsia Verified 02/23/19 10:40 clavulanic acid AdvReac Unknown dyspepsia Verified 02/23/19 10:40 [From Augmentin] Sulfa (Sulfonamide AdvReac Unknown jaw issues Verified 02/23/19 10:40 Antibiotics) (crooked, one side elevated) Consultations 02/23/19 15:46 Consult Case Management - Discharge Planning Routine Procedures Performed Operation Date: 02/23/19 12:40 Actual Procedures p Right Total Knee Arthroplasty, cemented, [employer](Right) - Jorje Holden, Ordered Studies 02/23/19 12:14 US - OR guided needle placemen Stat Hospital Course (1) Status post right knee replacement: 78 yo female stable POD #3 s/p right TKA, improved pain control 1. Med management 2. DVT prophylaxis- ASA, SCDs 3. PT/OT 4. D/C planning- home w/ HH Total Time Total Time Spent Total Time Spent (In Minutes): 20 Total Time Includes: Examination of the Patient, Discharge Planning and Medication Reconciliation Discharge Plan Discharge Items Patient Disposition: Home - Home Health Services Reason For Visit: RIGHT KNEE OSTEOARTHRITIS Discharge Diagnosis: Right Knee Osteoarthritis Activity: Per Instructions section Weightbearing: Right weightbearing Weightbearing Comment: as tolerated with walker Non-emergency contact: Surgeon Call non-emergency contact if: your pain is not controlled, your temperature is above 101.5, your wound has increased redness and your wound has increased drainage Follow-up/Referrals: PCP,BARBARA [Primary Care Provider] - Diet: Regular Addtl Attending Provider Instructions: ACTIVITY RECOMMENDATIONS: SELF CARE INSTRUCTIONS AFTER TOTAL KNEE REPLACEMENT A. You may need to continue a physical therapy program after discharge from the hospital. There are several options available to you. Your doctor will assist you in selecting the best one for you. 1. An out-patient facility 2 to 3 times a week for therapy or home therapy. 2. Continue working on all exercises taught to you in the hospital. Your goals should be to increase bending of your knee to 90 degrees and beyond and to fully straighten your knee. B. You may progress at your own pace from walking with a walker or crutches to a cane; then to no assistive devices. C. Make walking a part of your daily routine. Be up as much as comfortable with rest periods throughout the day. Rest with leg elevation is very important. Use the ice wrap frequently for the first 3-4 weeks. D. There are no restrictions on activities. 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 E. Wear the long elastic stockings (NANETTE hose) 20 hours a day for 2 weeks after surgery. They can be removed several times a day for laundering and for a bath. F. You may shower, no tub baths until cleared by your doctor. SPECIAL CARE INSTRUCTIONS: VERY IMPORTANT TO READ AND REVIEW A. There are a few signs you need to watch for after you are home. Call [facility] if you notice any of the followin. Increased severe knee pain. Some pain is expected especially when you exercise. 2. Increased swelling in your leg or knee; pain or swelling of the calf muscle in either lower leg. 3. Any fluid drainage from the incision. 4. Shortness of breath or chest pain. B. Please call [facility] at if you have any concerns or questions about your operation or recovery. The doctor or his nurse will return your call promptly. C. You must take antibiotics before dental work, bladder, bowel or other surgery. Your doctor will provide you with a permanent care to carry describing this precaution. IMPORTANT: * REMEMBER TO TAKE ASPIRIN, 81 MG, TWICE DAILY FOR 4 WEEKS UNLESS OTHERWISE DIRECTED. THIS IS YOUR BLOOD THINNER. * HIGH RISK PATIENTS MAY BE PRESCRIBED A STRONGER BLOOD THINNER. THIS WILL BE PROVIDED AT DISCHARGE. * CALL IF INCREASED PAIN, REDNESS, DRAINAGE OR FEVER GREATER THAT 101. * WEAR NANETTE HOSE 20 HOURS PER DAY FOR 2 WEEKS. * YOU MAY HAVE A LARGE BAND-AID LIKE DRESSING (SILVERON). THIS WILL REMAIN ON YOUR INCISION FOR 7 DAYS, THEN CAN BE REMOVED. IF INCISION IS LEAKING THROUGH DRESSING, CALL THE OFFICE . FOLLOW UP VISIT: If appointment is not already scheduled: Please call [facility] to make a follow-up appointment for 2 weeks after your surgery at . Pending Studies at Discharge: No Stand-Alone Forms: My [facility] Medications and DC Order Prescriptions: New aspirin [Ecotrin Low Strength] 81 mg Tablet,Delayed Release (Dr/Ec) 81 mg PO BID 30 Days Qty: 60 RF: 0 Nucynta 50 mg tablet 50 - 100 mg PO Q6 MDD 6 PRN (Reason: pain) Qty: 30 RF: 0 Continued trazodone 50 mg Tablet 50 mg PO HS RF: 0 sertraline 100 mg Tablet 200 mg PO QAM RF: 0 cyanocobalamin (vitamin B-12) [Vitamin B-12] 1,000 mcg Tablet 5,000 mcg PO DAILY RF: 0 alprazolam [Xanax] 0.25 mg Tablet 0.25 mg PO UD PRN (Reason: Anxiety) RF: 0 ascorbic acid (vitamin C) [Vitamin C] 500 mg Capsule, Extended Release 500 mg PO DAILY RF: 0 omeprazole 20 mg Capsule,Delayed Release(Dr/Ec) 20 mg PO QAM RF: 0 multivitamin Capsule 1 cap PO DAILY RF: 0 Calcium 600 + D(3) 600 mg calcium- 200 unit Capsule 1 cap PO DAILY RF: 0 cholecalciferol (vitamin D3) [Vitamin D3] 5,000 unit Tablet 15,000 unit PO DAILY RF: 0 Probiotic 3 billion cell Capsule 3,000 mmu cells PO DAILY RF: 0 Antidiarrheal 1 dose PO UD PRN (Reason: Diarrhea) RF: 0 Discontinued ibuprofen 200 mg Capsule 200 mg PO UD PRN (Reason: Pain) RF: 0 Discharge Orders: Discharge Order (Routine); Ordered 02/26/19 Ordered By: Herber Vogel Admission Data Admit Date/Time: 02/23/19 14:34 Attending Provider: Jorje Holden Admit Provider: Jorje Holden Primary Care Provider: PCP,NO Other Interventions: Discharge Summary Assessment (RN) Last Done: 02/26/19 11:32 DC Date/Time DO NOT enter until pt leaves facility: 02/26/19 14:27
== END 2019-02-26 14:27 | disposition home health service (06) | DRG 470 ==
LOC: ASU 10:10 → 3E 14:34